=== PATIENT | male | born 1945 | race Hispanic/Latino ===

== ENCOUNTER 2016-05-02 16:22 | Emergency (ER) | payer MEDICARE ==
[2016-05-02 16:44] VITALS: BP 120/68
[2016-05-02 17:17] LABS: Basophils % (Auto) 0.7 % (0.0-1.8); Eosinophils % (Auto) 1.6 % (0.0-4.3); Hematocrit 48.4 % (35.5-45.6); Hemoglobin 16.3 gm/dl (11.8-15.2); Mean Corpuscular HGB Conc 34 % (32-34); Mean Corpuscular Hemoglobin 31 pg (28-32); Mean Corpuscular Volume 92 fl (84-94); Platelet Count 218 K/mm3 (140-440); Red Blood Count 5.25 M/mm3 (3.65-5.03); Red Cell Distribution Width 14.2 % (13.2-15.2); White Blood Count 9.7 K/mm3 (4.5-11.0)
[2016-05-02 17:35] LABS: INR 0.99 (0.87-1.13)
--- NOTE | 2016-05-03 21:39 | ED Elopement Review ---
ED Pt Elopement review - Results review Lab results: Laboratory Tests 05/02/16 05/02/16 05/02/16 16:38 17:00 17:00 WBC 9.7 RBC 5.25 H Hgb 16.3 H Hct 48.4 H MCV 92 MCH 31 MCHC 34 RDW 14.2 Plt Count 218 Lymph % (Auto) 26.1 [place] % (Auto) 11.7 H Eos % (Auto) 1.6 Baso % (Auto) 0.7 Lymph # 2.5 [place] # 1.1 H Eos # 0.2 Baso # 0.1 Seg Neutrophils % 59.9 Seg Neutrophils # 5.8 PT 13.0 INR 0.99 POC Glucose 131 H - Call Back decision Pt Call Back Decision: No action required
== END 2016-05-02 23:23 | disposition left against medical advice (07) ==
LOC: ED 16:22
DX: S01.81XA Laceration without foreign body of other part of head, initial encounter (principal); Z53.21 Procedure and treatment not carried out due to patient leaving prior to being seen by health care provider; W18.39XA Other fall on same level, initial encounter; Y93.89 Activity, other specified; Y92.89 Other specified places as the place of occurrence of the external cause; Y99.8 Other external cause status
CPT/HCPCS: 36415; 82962; 85025; 85610